=== PATIENT | male | born 1990 | race Caucasian/White ===

== ENCOUNTER 2019-04-22 14:33 | Emergency (ER) | payer BC ==
--- NOTE | 2019-04-22 14:35 | PDOC ---
History of Present Illness - General Chief Complaint: Headache Stated Complaint: HEADACHE Time Seen by Provider: 04/22/19 14:35 History Source: Patient Exam Limitations: No Limitations - History of Present Illness Initial Comments: Paras Lutz is a 28 yo M with no sig pmh who presents to the [facility] sent from his PCP Jia Mccarthy because he has had a left sided headache for the past 2 days. The patient states that on Friday he woke up with a headache on the left side of his forehead which on Friday he rated as 10/10 in pain and described as a heavy ache. Today he rates his headache as 4/10 in pain. The patient states he also felt like he had a low grade fever and his told him he was burning up but he never measured his temperature. The patient endorses 2 episodes of loose stools daily since Friday since the headache began. The patient took 2 pills of a [employer] brand pain killer yesterday of which he does not know the name and the medication did not help very much. He tried taking two 200 mg pills of a different painkiller today which also didn't seem to help the patient very much. The patient denies having neck pain, nausea, vomiting, sore throat, runny nose, rhinorrea, chest pain, SOB, difficulty breathing, a cough, photophobia, phonophobia, neck rigidity, dysuria, frequency, urgency, new rashes or sick contacts. PCP: Dr. Jia Mccarthy PSH: None reported Social Hx: Occasional mild recreational alcohol consumption Allergies: NKA, NKDA Past History - Past Medical History Allergies/Adverse Reactions: Allergies Allergy/AdvReac Type Severity Reaction Status Date / Time No Known Allergies Allergy Unverified 04/22/19 14:35 Home Medications: Ambulatory Orders NK [No Known Home Medication] 04/22/19 Review of Systems - Review of Systems Able to Perform ROS?: Yes Comments:: CONSTITUTIONAL: Present: Fever, chills Absent: diaphoresis, generalized weakness, malaise, loss of appetite HEENT: Present: Eye pain Absent: rhinorrhea, nasal congestion, throat pain, throat swelling, difficulty swallowing, mouth swelling, ear pain, visual Changes CARDIOVASCULAR: Absent: chest pain, syncope, palpitations, irregular heart rate, lightheadedness , peripheral edema RESPIRATORY: Absent: cough, shortness of breath, dyspnea with exertion, orthopnea, wheezing, stridor, hemoptysis GASTROINTESTINAL: Present: Soft stools Absent: abdominal pain, abdominal distension, nausea, vomiting, constipation, melena, hematochezia GENITOURINARY: Absent: dysuria, frequency, urgency, hesitancy, hematuria, flank pain, genital pain MUSCULOSKELETAL: Absent: myalgia, arthralgia, joint swelling SKIN: Absent: rash, itching, pallor HEMATOLOGIC/IMMUNOLOGIC: Absent: easy bleeding, easy bruising, lymphadenopathy, frequent infections ENDOCRINE: Absent: unexplained weight gain, unexplained weight loss, heat intolerance, cold intolerance NEUROLOGIC: Present: headache Absent: focal weakness or paresthesias, dizziness, unsteady gait, seizure, mental status changes, bladder or bowel incontinence PSYCHIATRIC: Absent: anxiety, depression, suicidal or homicidal ideation, hallucinations. *Physical Exam - Physical Exam Comments: GENERAL: Well developed, well nourished. Awake and alert. No acute distress. HEENT: The posterior oropharynx is erythematous without exudate. Normocephalic, atraumatic. PERRLA, EOMI. No conjunctival pallor. Sclera are non-icteric. Moist mucous membranes. NECK: Supple. Full ROM. No JVD. No thyromegaly. No lymphadenopathy. CARDIOVASCULAR: Regular rate and rhythm. No murmurs, rubs, or gallops. Distal pulses are 2+ and symmetric. PULMONARY: No evidence of respiratory distress. Lungs clear to auscultation bilaterally. No wheezing, rales or rhonchi. ABDOMINAL: Soft. Non-tender. Non-distended. No rebound or guarding. No organomegaly. Normoactive bowel sounds. MUSCULOSKELETAL Normal range of motion at all joints. No bony deformities or tenderness. No CVA tenderness. EXTREMITIES: No cyanosis. No clubbing. No edema. No calf tenderness. SKIN: Warm and dry. Normal capillary refill. No rashes. No jaundice. NEUROLOGICAL: Alert, awake, appropriate. Cranial nerves 2-12 intact. No deficits to light touch in face, upper extremities and lower extremities. No motor deficits in the in face, upper extremities and lower extremities. Normal speech. Gait is normal without ataxia. PSYCHIATRIC: Cooperative. Good eye contact. Appropriate mood and affect. ED Treatment Course - LABORATORY CBC & Chemistry Diagram: 04/22/19 15:10 04/22/19 15:10 Medical Decision Making - Medical Decision Making Paras Lutz is a 28 yo M with no sig pmh who presents to the [facility] sent from his PCP Jia Mccarthy because he has had a left sided headache for the past 2 days. The patient states that on Friday he woke up with a headache on the left side of his forehead which on Friday he rated as 10/10 in pain and described as a heavy ache. Today he rates his headache as 4/10 in pain. The patient states he also felt like he had a low grade fever and his told him he was burning up but he never measured his temperature. The patient endorses 2 episodes of loose stools daily since Friday since the headache began. The patient took 2 pills of a [employer] brand pain killer yesterday of which he does not know the name and the medication did not help very much. He tried taking two 200 mg pills of a different painkiller today which also didn't seem to help the patient very much. The patient denies having neck pain, nausea, vomiting, sore throat, runny nose, rhinorrea, chest pain, SOB, difficulty breathing, a cough, photophobia, phonophobia, neck rigidity, dysuria, frequency, urgency, new rashes or sick contacts. Vital Signs Temp Pulse Resp BP Pulse Ox 98.0 F 58 L 16 120/80 99 04/22/19 14:35 04/22/19 14:35 04/22/19 14:35 04/22/19 14:35 04/22/19 14:35 DDx IBNLT: headache - migraine vs cluster vs tension, strep pharyngitis vs viral pharyngitis vs gastrointestinal viral infection vs other URI, electrolyte/ metabolid disorder. - Extremely low likelihood for meningitis/encephalitis as the patient has no red flag signs such as a fever, nuchal rigidity, neck stiffness, confusion, ams , photophobia, phonophobia, or blurry vision MDM: Patient presents with a headache and subjective low grade fevers associated with soft stools for 2 days. Here in the ER he is afebrile and very well appearing with no fever, nuchal rigidity, neck stiffness, photophobia, phonophobia, or any other concerning signs for meningitis. Considering his posterior orpharynx is erythematous, and he has a low grade fever this presentation sounds most typical of a viral pharyngitis. - Will start with some basic labs, IV hydration, and analgesia supportive care then re-assess. Plan: Labs, rapid strep, IV hydration, analgesia, re-assess. Labs: Unremarkable. No elevated white count. Rapid strep: Negative Re-assessment: Patient feels much better after meds and states his headache is no longer present and he is now asymptomatic. PCP consult: I spoke with the patient's PCP - Dr. Mccarthy and told her our findings in the ER. She was very pleased to hear that he no longer has a headache after the analgesic medications. She agrees with our plan that if the patient is persistently asymptomatic he can safely be discharged with return precautions, PCP and neuro FU Disposition: Home with PCP and neuro follow up *DC/Admit/Observation/Transfer Diagnosis at time of Disposition: Headache Qualifiers: Headache type: unspecified Headache chronicity pattern: acute headache Intractability: not intractable Qualified Code(s): R51 - Headache - Discharge Dispostion Disposition: HOME Condition at time of disposition: Improved Decision to Admit order: No - Referrals Referrals: Jia Mccarthy [Primary Care Provider] - Ryan Warner MD [Staff Physician] - Jordan De Souza MD [Staff Physician] - Garry Mancera MD [Staff Physician] - Sadaf Presley MD [Staff Physician] - - Patient Instructions Printed Discharge Instructions: DI for Headache Additional Instructions: You came into the ER with a headache. We gave you some medications which made you feel better. Drink plenty of fluids. Alternate taking motrin and tylenol as needed for your headache every 3 to 4 hours as needed for comfort. We are giving you the numbers of multiple neurologists. We want you to call one up and schedule a follow up appointment in the next 3 to 5 days to make sure you are getting better and you no longer have a headache. Please make sure to call up one of the neurologists we are referring you to and schedule an appointment. Please also make sure to schedule a follow up appointment with your primary care doctor in the next 3 to 5 days. Come back to the ER immediately if your headache returns, you feel nauseous, start vomiting, have neck stiffness or rigidity, get a high fever, or have any other new or worsening concerns. Thank you for coming to the [facility]. We hope you feel better soon! Print Language: MONGOLIAN - Post Discharge Activity
[2019-04-22 14:43] VITALS: TEMP 98; BMI 31.3
--- NOTE | 2019-04-22 14:43 | PDOC ---
Attending Attestation - Resident Resident Name: [email or web address] - ED Attending Attestation I have performed the following: I have examined & evaluated the patient, The case was reviewed & discussed with the resident, I agree w/resident's findings & plan - HPI HPI: 04/22/19 14:42 28 YOM with no known medical history presenting with headache x 3 days, associated with subjective fever x 1 day in the beginning. left sided headache and left periorbital discomfort. current pain 4/10. no visual deficits or blurry vision. no focal weakness/paresthesias. +associated with loose stools x 2 episodes since yesterday, but denies sick contacts at work or home. nonbloody, brown loose stool noted, last episode earlier today. no suspicious food intake.. has been taking advil/tylenol with occasional relief; last took NSAID? 400mg earlier today without relief. went to see PMD Dr Mccarthy this afternoon, sent to the ED for further evaluation. no neck stiffness, no neck pain, photosensitivity, n/v/d. no focal weakness or paresthesias. no cough or congestion. no urinary symptoms. 04/22/19 14:45 04/22/19 17:08 - Physicial Exam PE: 04/22/19 15:16 Agree with the resident's HPI and PE as documented in the electronic medical record. NAD, well appearing, EOMI, PERRL, MMM, nl conjunctiva, anicteric; neck supple. lungs clear, RRR, abdomen soft nontender. Back nontender. SIMON x4, no focal neuro deficits. No peripheral edema. normal color for ethnicity, WWP. - Medical Decision Making 04/22/19 15:16 Vital Signs Temp Pulse Resp BP Pulse Ox 98.0 F 58 L 16 120/80 99 04/22/19 14:35 04/22/19 14:35 04/22/19 14:35 04/22/19 14:35 04/22/19 14:35 hpi as documented VS reviewed, wnl. no fever here, no documented fever at home. DDX. viral syndrome, pharyngitis, fever, migraine, tension LARA doubt [employer] mass/lesion, as no neuro deficits/symptoms no meningeal signs/no e/o sz/AMS or focal neuro deficits, ambulatory, gait stable. offered CT imaging, pt declined at this time with shared decision making process. pt elects for supportive management and reeval after meds, as this is appropriate. labs and lytes wnl given analgesia, IVF, reassess 04/22/19 16:46 - feels much improved with IVF/reglan and benadryl, tylenol and ibuprofen - strep neg, f/u culture comfortable, neuro intact contacted PMD Dr Mccarthy to close loop of communication. no indication for CT imaging at this time can get neurology f/u outpatient, return precautions, advised hydration and supportive care. Pt to be discharged in stable condition. Patient and family made aware of clinical impression, treatment recommendations and disposition plan, return precautions discussed (including but not limited to new or persistent/worsening symptoms, pain, fevers, or signs of infection, chest pain, respiratory distress , inability to tolerate oral intake, dehydration, syncope, or neurologic changes ). Follow up with PMD Dr Mccarthy and/or neuro specialist as recommended, follow up information provided, take medications as instructed for duration of time. continue with supportive care, avoid triggers and precipitants. All questions answered to patient's satisfaction and expressed understanding and comfort with this. At the time of discharge, the patient is alert, clinically improved, tolerating po and verbalizes understanding of instructions, satisfied with the care received and felt comfortable with the plan. Patient does not suffer from an acute life-threatening medical condition at this time and is safe for outpatient follow-up. 04/22/19 16:48 04/22/19 17:07 04/22/19 17:07
[2019-04-22] MEDS ORDERED: IBUPROFEN 400 MG TABLET (FP) PO ONE ×2 (14:52→14:56)
[2019-04-22] MEDS ORDERED: ACETAMINOPHEN 325 MG TABLET (FP) PO ONE (14:52)
[2019-04-22] MEDS ORDERED: METOCLOPRAMIDE HCL INJECTION 10 MG/2 ML VIAL IVPUSH ONE (14:52)
[2019-04-22] MEDS ORDERED: SODIUM CHLORIDE 0.9% 500 ML INFUS.BAG IV ONE (14:52)
[2019-04-22] MEDS ORDERED: ACETAMINOPHEN 325 MG TABLET (FP) ONE (14:57)
[2019-04-22] MEDS ORDERED: METOCLOPRAMIDE HCL INJECTION 10 MG/2 ML VIAL ONE (14:57)
[2019-04-22 15:24] LABS: BASO % 0.5 % (0-2.0); EOS % 1.5 % (0-4.5); HEMOGLOBIN 14.5 GM/dl (11.7-16.9); LYMPH % 25.4 % (8-40); MCH 29.1 pg (25.7-33.7); MCHC 33.8 g/dl (32.0-35.9); MEAN CELL VOLUME 86.1 fl (80-96); MEAN PLT VOLUME 7.4 fl (7.5-11.1); MONO % 12.1 % (3.8-10.2); NEUT % 60.5 % (42.8-82.8); PLATELET COUNT 307 K/MM3 (134-434); RBC 4.99 M/mm3 (4.00-5.60); RDW 11.7 % (11.9-15.9); WHITE BLOOD COUNT 4.6 K/mm3 (4.0-10.8)
[2019-04-22 15:51] LABS: ALBUMIN 4.4 g/dl (3.4-5.0); BILIRUBIN,TOTAL 0.8 mg/dl (0.2-1); CALCIUM 9.3 mg/dl (8.5-10); CREATININE 0.9 mg/dl (0.55-1.3); POTASSIUM 4.1 mmol/L (3.5-5.1); TOT PROT 8.3 g/dl (6.4-8.2)
[2019-04-22 16:51] VITALS: BP 109/63; PULSE 53
== END 2019-04-22 17:10 | disposition home or self-care (01) ==
LOC: FER 14:33
PROC: 3E0337Z Introduction of Electrolytic and Water Balance Substance into Peripheral Vein, Percutaneous Approach (ICD-10-PCS; principal; 2019-04-22)
PROC: 3E033GC Introduction of Other Therapeutic Substance into Peripheral Vein, Percutaneous Approach (ICD-10-PCS; 2019-04-22)
DX: R51 Headache (principal)
CPT/HCPCS: 36415; 80053; 85025; 87070; 87880; 99283-25